=== PATIENT | male | born 1985 | race Caucasian/White ===

== ENCOUNTER 2017-02-10 23:21 | Emergency (ER) | payer OTHER ==
[~2017-02-10] VITALS: Ht 182.9 cm; Wt 75.0 kg
[2017-02-10] MEDS ORDERED: HALOPERIDOL LACTATE 5 MG/ML AMP ONE (23:47)
[2017-02-10] MEDS ORDERED: LORazepam 2 MG/ML VIAL ONE (23:47)
[2017-02-11] MEDS ORDERED: HALOPERIDOL LACTATE 5 MG/ML AMP IV PUSH ONE
[2017-02-11] MEDS ORDERED: LORazepam 2 MG/ML VIAL IV PUSH ONE
--- NOTE | 2017-02-11 00:09 | PD ---
HPI Chief Complaint: Psychiatric Symptoms Time Seen by Provider: 23:27 Travel History International Travel<30 days: No Contact w/Intl Traveler<30days: No History of Present Illness HPI This Is a 43-year-old male who presents to the emergency department who appears to the emergency department as a voluntary psychiatric evaluation but then refused to check in and started to run around her parking lot to the point where police placed him under a Leon act. The patient says he is very anxious and people been trying to kill him for 3-4 months, he is worried and doesn't feel safe. He wants to go to [facility]. He admits to using opiates and "some other drugs". He denies heavy alcohol use. He is not a good historian. Allergies-Medications (Allergen,Severity, Reaction): Coded Allergies: No Known Allergies (Verified Allergy, Unknown, 08/19/04) Review of Systems ROS Limitations: Intoxication Physical Exam Narrative GENERAL:Well appearing, no acute distress SKIN: Focused skin assessment warm and dry. HEAD: Atraumatic. Normocephalic. EYES: Pupils are 2 mm, equal and reactive no injection or drainage. ENT: Moist mucous membranes NECK: Trachea midline. CARDIOVASCULAR: Regular rate and rhythm. No murmur appreciated. RESPIRATORY: Clear to auscultation. Breath sounds equal bilaterally. GASTROINTESTINAL: Abdomen soft, non-tender, nondistended. MUSCULOSKELETAL: No obvious deformities. NEUROLOGICAL: Awake and alert. No obvious cranial nerve deficits. Moving all extremities. PSYCHIATRIC: Agitated, anxious, paranoid, tangential and intermittently tearful Data Data Orders Orders Haloperidol Inj (Haldol Inj) (02/10/17 23:47) Lorazepam Inj (Ativan Inj) (02/10/17 23:47) Complete Blood Count With Diff (02/10/17 23:58) Comprehensive Metabolic Panel (02/10/17 23:58) ^ Insert Iv (02/10/17 23:58) Drug Screen, Random Urine (02/10/17 23:58) Alcohol (Ethanol) (02/10/17 23:58) Haloperidol Inj (Haldol Inj) (02/11/17 00:00) Lorazepam Inj (Ativan Inj) (02/11/17 00:00) MDM Medical Decision Making Medical Screen Exam Complete: Yes Emergency Medical Condition: Yes Differential Diagnosis Substance intoxication, schizophrenia, bipolar disorder, psychosis Narrative Course This is a 31-year-old male who presents to the emergency department agitated, intermittently tearful and very paranoid. He appears intoxicated. He was placed under a Leon act by police because he was refusing to be evaluated and he was running around our parking lot. Patient does not appear to have any preserved insight and he has poor judgment at this time. An IV was established he was given Haldol and Ativan after which he was much more calm and sedated. Labs will be obtained. I don't think he has any active medical issues that he is medically cleared for psychiatric evaluation. Sita Vázquez MD Feb 11, 2017 00:09
[2017-02-11 00:13] VITALS: BP 130/92; PULSE 107; RESP 24; TEMP 98.5; O2SAT 98
[2017-02-11 00:26] LABS: AUTOMATED NEUTROPHIL # 12.6 TH/MM3 (1.8-7.7); BASOPHIL # 0.1 TH/MM3 (0-0.2); BASOPHIL % 0.4 % (0.0-2.0); EOSINOPHIL # 0.2 TH/MM3 (0-0.4); EOSINOPHIL % 1.2 % (0.0-4.0); HEMO FLAGS DIFF FINAL; LYMPH % 9.8 % (9.0-44.0); LYMPHOCYTE # 1.5 TH/MM3 (1.0-4.8); MEAN CELL VOLUME 91.1 FL (80.0-100.0); MEAN CORPUSCULAR HEMOGLOBIN 31.2 PG (27.0-34.0); MEAN CORPUSCULAR HGB CONC 34.2 % (32.0-36.0); MONO % 5.5 % (0.0-8.0); NEUT % 83.1 % (16.0-70.0); PLATELET COUNT 296 TH/MM3 (150-450); RED BLOOD COUNT 4.39 MIL/MM3 (4.50-5.90); RED CELL DISTRIBUTION WIDTH 13.7 % (11.6-17.2); WHITE BLOOD COUNT 15.2 TH/MM3 (4.0-11.0)
[2017-02-11 00:50] LABS: ALT (GPT) 19 U/L (12-78); ANION GAP 7 MEQ/L (5-15); AST (GOT) 28 U/L (15-37); BICARBONATE 27.8 MEQ/L (21.0-32.0); BLOOD UREA NITROGEN 21 MG/DL (7-18); CHLORIDE 102 MEQ/L (98-107); GLOMERULAR FILTRATION RATE 76 ML/MIN (>89); POTASSIUM 3.8 MEQ/L (3.5-5.1); SODIUM (NA) 137 MEQ/L (136-145)
[2017-02-11 00:52] LABS: ALKALINE PHOSPHATASE 69 U/L (45-117); TOTAL BILIRUBIN ADULT 0.5 MG/DL (0.2-1.0)
[2017-02-11 01:00] LABS: ALCOHOL LESS THAN 3 MG/DL (0-5)
[2017-02-11 07:35] VITALS: BP 103/62; PULSE 82; RESP 16; TEMP 97.7; O2SAT 97
[2017-02-11 09:54] VITALS: BP 103/62
[2017-02-11 10:03] VITALS: BP 114/72; PULSE 81; RESP 18; O2SAT 97
--- NOTE | 2017-02-11 14:39 | PD ---
History of Present Illness Chief Complaint: Psychiatric Symptoms Time Seen by Provider: 14:30 Travel History International Travel<30 Days: No Contact w/Intl Traveler<30days: No Known affected area: No Legal Status Legal Status: Leon Act History of Present Illness: 31-year-old male presents under a Leon act after engaging in bizarre and paranoid behavior when he first came to [place]. Apparently he was uncooperative and running around and an agitated fashion and was Leon acted when he first arrived. At this point, the patient has been here for many hours and sleeping for most of it. He is no longer intoxicated although he admits to using opiates and crystal meth. Patient states when he uses crystal meth he has a tendency to become paranoid and he believes this is what happened to him. He is fairly calm at this time but he is anxious to go to his grandparents home, where he resides. His children are there also. Patient does have a multiyear history of drug abuse. However, at this point he is no longer intoxicated and he is verbally odette for safety. He has no suicidal or homicidal ideation, plan or intent. PFSH Past Medical History Medical History: Denies Significant Hx Tetanus Vaccination: Unknown Influenza Vaccination: No Past Surgical History Surgical History: Unable to Obtain Psychiatric History Psychiatric History Hx Psychiatric Treatment: Denied History of Inpatient Treatment: No Guns or firearms in home: No Social History Hx Alcohol Use: Yes Hx Tobacco Use: Yes Hx Substance Use: Yes Hx of Substance Use Treatment: Yes Allergies-Medications (Allergen,Severity, Reaction): Coded Allergies: No Known Allergies (Verified , 02/11/17) Reported Meds & Prescriptions Reported Meds & Active Scripts Active Active Prescriptions or Reported Medications Unobtainable Review of Systems Except as stated in HPI: all other systems reviewed are Neg Exam Alert: Yes [place]: Person, Place, Date, Situation Mood: Anxious Affect: Appropriate Speech: Clear, Logical Eye Contact: Normal Memory Intact: Immediate, Recent, Remote Insight/Judgement Adequate MDM Medical Decision Making Medical Record Reviewed: Yes Assessment/Plan Patient interviewed at bedside and discussed with nurse. Medical record reviewed. Patient's primary problems appear to be drug abuse including crystal meth and opiates. At this time, the patient does not appear to be intoxicated. He answered all questions appropriately. He is verbally odette for safety and he is competent to do so. He is being referred to [facility] for follow up. At this point, he does not meet Leon act criteria or criteria for involuntary psychiatric hospitalization. Orders Orders Haloperidol Inj (Haldol Inj) (02/10/17 23:47) Lorazepam Inj (Ativan Inj) (02/10/17 23:47) Complete Blood Count With Diff (02/10/17 23:58) Comprehensive Metabolic Panel (02/10/17 23:58) ^ Insert Iv (02/10/17 23:58) Drug Screen, Random Urine (02/10/17 23:58) Alcohol (Ethanol) (02/10/17 23:58) Haloperidol Inj (Haldol Inj) (02/11/17 00:00) Lorazepam Inj (Ativan Inj) (02/11/17 00:00) Diet Regular Basic (02/11/17 Breakfast) Diet Regular Basic (02/11/17 Lunch) Psych Screen (02/11/17 14:01) Results Vital Signs Date Time Temp Pulse Resp B/P (MAP) Pulse Ox O2 Delivery O2 Flow Rate FiO2 02/11/17 10:03 81 18 114/72 (86) 97 Room Air 02/11/17 09:54 103/62 (76) 02/11/17 07:35 82 16 02/11/17 07:35 97.7 82 16 103/62 (76) 97 Room Air 02/11/17 00:13 98.5 107 24 130/92 (105) 98 02/11/17 00:08 107 24 Laboratory Tests Test 02/11/17 00:05 White Blood Count 15.2 Red Blood Count 4.39 Hemoglobin 13.7 Hematocrit 40.0 Mean Corpuscular Volume 91.1 Mean Corpuscular Hemoglobin 31.2 Mean Corpuscular Hemoglobin Concent 34.2 Red Cell Distribution Width 13.7 Platelet Count 296 Mean Platelet Volume 7.3 Neutrophils (%) (Auto) 83.1 Lymphocytes (%) (Auto) 9.8 Monocytes (%) (Auto) 5.5 Eosinophils (%) (Auto) 1.2 Basophils (%) (Auto) 0.4 Neutrophils # (Auto) 12.6 Lymphocytes # (Auto) 1.5 Monocytes # (Auto) 0.8 Eosinophils # (Auto) 0.2 Basophils # (Auto) 0.1 CBC Comment DIFF FINAL Differential Comment Blood Urea Nitrogen 21 Creatinine 1.14 Random Glucose 105 Total Protein 8.2 Albumin 4.8 Calcium Level 9.2 Alkaline Phosphatase 69 Aspartate Amino Transf (AST/SGOT) 28 Alanine Aminotransferase (ALT/SGPT) 19 Total Bilirubin 0.5 Sodium Level 137 Potassium Level 3.8 Chloride Level 102 Carbon Dioxide Level 27.8 Anion Gap 7 Estimat Glomerular Filtration Rate 76 Ethyl Alcohol Level LESS THAN 3 Diagnosis Primary Impression: Opiate abuse, continuous Additional Impression: 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
--- NOTE | 2017-02-11 14:45 | PD ---
Physical Exam Date Seen by Provider: Feb 11, 2017 Time Seen by Provider: 14:44 Narrative Leon act lifted. I was asked to discharge the patient. Data Data Last Documented VS Vital Signs Date Time Temp Pulse Resp B/P (MAP) Pulse Ox O2 Delivery O2 Flow Rate FiO2 02/11/17 10:03 81 18 114/72 (86) 97 Room Air 02/11/17 07:35 97.7 Orders Orders Haloperidol Inj (Haldol Inj) (02/10/17 23:47) Lorazepam Inj (Ativan Inj) (02/10/17 23:47) Complete Blood Count With Diff (02/10/17 23:58) Comprehensive Metabolic Panel (02/10/17 23:58) ^ Insert Iv (02/10/17 23:58) Drug Screen, Random Urine (02/10/17 23:58) Alcohol (Ethanol) (02/10/17 23:58) Haloperidol Inj (Haldol Inj) (02/11/17 00:00) Lorazepam Inj (Ativan Inj) (02/11/17 00:00) Diet Regular Basic (02/11/17 Breakfast) Diet Regular Basic (02/11/17 Lunch) Psych Screen (02/11/17 14:01) Labs Laboratory Tests Test 02/10/17 13:30 02/11/17 00:05 Urine Opiates Screen POS Urine Barbiturates Screen NEG Urine Amphetamines Screen POS Urine Benzodiazepines Screen NEG Urine Cocaine Screen NEG Urine Cannabinoids Screen NEG White Blood Count 15.2 TH/MM3 Red Blood Count 4.39 MIL/MM3 Hemoglobin 13.7 GM/DL Hematocrit 40.0 % Mean Corpuscular Volume 91.1 FL Mean Corpuscular Hemoglobin 31.2 PG Mean Corpuscular Hemoglobin Concent 34.2 % Red Cell Distribution Width 13.7 % Platelet Count 296 TH/MM3 Mean Platelet Volume 7.3 FL Neutrophils (%) (Auto) 83.1 % Lymphocytes (%) (Auto) 9.8 % Monocytes (%) (Auto) 5.5 % Eosinophils (%) (Auto) 1.2 % Basophils (%) (Auto) 0.4 % Neutrophils # (Auto) 12.6 TH/MM3 Lymphocytes # (Auto) 1.5 TH/MM3 Monocytes # (Auto) 0.8 TH/MM3 Eosinophils # (Auto) 0.2 TH/MM3 Basophils # (Auto) 0.1 TH/MM3 CBC Comment DIFF FINAL Differential Comment Blood Urea Nitrogen 21 MG/DL Creatinine 1.14 MG/DL Random Glucose 105 MG/DL Total Protein 8.2 GM/DL Albumin 4.8 GM/DL Calcium Level 9.2 MG/DL Alkaline Phosphatase 69 U/L Aspartate Amino Transf (AST/SGOT) 28 U/L Alanine Aminotransferase (ALT/SGPT) 19 U/L Total Bilirubin 0.5 MG/DL Sodium Level 137 MEQ/L Potassium Level 3.8 MEQ/L Chloride Level 102 MEQ/L Carbon Dioxide Level 27.8 MEQ/L Anion Gap 7 MEQ/L Estimat Glomerular Filtration Rate 76 ML/MIN Ethyl Alcohol Level LESS THAN 3 MG/DL MDM Medical Record Reviewed: Yes Supervised Visit with VIP[facility]: No Differential Diagnosis drug induced mood disorder Narrative Course I discussed discharge with patient. He is not suicidal or homicidal. He admits to using meth and opiates and tells me that he will try to cut down/quit. Discharge orders placed. 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
== END 2017-02-11 16:10 | disposition home or self-care (01) ==
LOC: NEPD 23:21 → NEPJ 02-11 16:10
DX: F11.10 Opioid abuse, uncomplicated (principal); F19.19 Other psychoactive substance abuse with unspecified psychoactive substance-induced disorder; Z72.0 Tobacco use
CPT/HCPCS: 80053; 80307; 85025; 96374; 96375; 99284; J1630; J2060